=== PATIENT | female | born 1975 | race Caucasian/White ===

== ENCOUNTER → 2016-12-14 | Outpatient (CLI) | payer OTHER | END | disposition home or self-care (01) | LOC: RAD.S 12-07 11:54 | DX: G54.0 Brachial plexus disorders (principal); R29.898 Other symptoms and signs involving the musculoskeletal system; M50.222 Other cervical disc displacement at C5-C6 level; M50.322 Other cervical disc degeneration at C5-C6 level; R22.32 Localized swelling, mass and lump, left upper limb ==

== ENCOUNTER 2016-12-30 09:11 | Day surgery (SDC) | payer OTHER | END 2016-12-30 12:45 | disposition home or self-care (01) | DX: G89.4 Chronic pain syndrome (principal); G90.512 Complex regional pain syndrome I of left upper limb; Z79.899 Other long term (current) drug therapy ==